=== PATIENT | male | born 1950 | race Caucasian/White ===

== ENCOUNTER 2017-05-17 08:52 | Emergency (ER) | payer MEDICARE, OTHER ==
[~2017-05-17] VITALS: Ht 180.3 cm; Wt 70.5 kg
[2017-05-17] MEDS ORDERED: AZIT-57 PO (09:38)
[2017-05-17 09:50] VITALS: BP 116/75
== END 2017-05-17 09:52 | disposition home or self-care (01) ==
LOC: ER 08:53
DX: J20.9 Acute bronchitis, unspecified (principal); I10 Essential (primary) hypertension; E11.9 Type 2 diabetes mellitus without complications
CPT/HCPCS: 99283

== ENCOUNTER 2017-07-16 14:03 | Emergency (ER) | payer MEDICARE, MEDICAID ==
[~2017-07-16] VITALS: Ht 180.3 cm; Wt 61.8 kg
[2017-07-16 14:25] VITALS: BP 126/82
[2017-07-16] MEDS ORDERED: TETanus/Pertussis (Acell)/Diphther VAC/PF (Tdap-Adult) 0.5ml syringe IM ONE (15:00)
[2017-07-16] MEDS ORDERED: BUPIVAcaine/PF 2.5 mg/ml (0.25%) 30ml vial IJ ONE (15:00)
[2017-07-16] MEDS ORDERED: CEPH-572 PO (15:35)
== END 2017-07-16 15:55 | disposition home or self-care (01) ==
LOC: ER 14:04
DX: S61.012A Laceration without foreign body of left thumb without damage to nail, initial encounter (principal); I10 Essential (primary) hypertension; E11.9 Type 2 diabetes mellitus without complications; W22.8XXA Striking against or struck by other objects, initial encounter; Y93.89 Activity, other specified; Y92.89 Other specified places as the place of occurrence of the external cause; Y99.8 Other external cause status
CPT/HCPCS: 12001; 73130; 99284; A6449; J3490; 90715

== ENCOUNTER 2021-05-23 17:58 | Emergency (ER) | payer MEDICARE, MEDICAID ==
[~2021-05-23] VITALS: Ht 180.3 cm; Wt 70.5 kg
[2021-05-23] MEDS ORDERED: BENZ-38 PO (19:02)
[2021-05-23] MEDS ORDERED: ALBU6.7H9 INH (19:02)
[2021-05-23] MEDS ORDERED: CEPH250T PO (19:02)
[2021-05-23] MEDS ORDERED: DOXY100C76 PO (19:02)
[2021-05-23 19:06] VITALS: BP 188/91
== END 2021-05-23 20:08 | disposition home or self-care (01) ==
LOC: ER 17:58
DX: J40 Bronchitis, not specified as acute or chronic (principal); Z20.822 Contact with and (suspected) exposure to COVID-19; I10 Essential (primary) hypertension; E11.9 Type 2 diabetes mellitus without complications; Z87.891 Personal history of nicotine dependence; Z79.2 Long term (current) use of antibiotics; Z79.899 Other long term (current) drug therapy
CPT/HCPCS: 36415; 71045; 99284; U0003; U0005

== ENCOUNTER 2022-03-29 22:53 | Emergency (ER) | payer BC, MEDICAID ==
[~2022-03-29] VITALS: Ht 175.3 cm; Wt 73.6 kg
[~2022-03-29 22:53] MED LIST: ALBU6.7H14 INH; CEPH-585 PO; SULF1TAB45 PO
[2022-03-29 23:06] VITALS: BP 177/75
[2022-03-30] MEDS ORDERED: CEPH-585 PO (02:05)
[2022-03-30] MEDS ORDERED: DOXY100C76 PO (02:05)
--- NOTE | 2022-03-30 02:45 | NUR ---
TREATMENT WAS PROVIDED TO THE PT PER EDMO REBEKA ORDERS: XEROFORM, GAUZE WRAPS, AND AN RUPERTO BANDAGE WAS ADMINISTED TO BOTH THE PT LEGS. PT APPEARED TO TOLERATE WELL.
== END 2022-03-30 02:46 | disposition home or self-care (01) ==
LOC: ER 22:53
DX: L02.416 Cutaneous abscess of left lower limb (principal); L02.415 Cutaneous abscess of right lower limb; E11.9 Type 2 diabetes mellitus without complications; I10 Essential (primary) hypertension; Z79.2 Long term (current) use of antibiotics; Z79.899 Other long term (current) drug therapy
CPT/HCPCS: 99284; A6223; A6446; A6449

== ENCOUNTER 2022-09-01 22:54 | Emergency (ER) | payer BC, MEDICAID ==
[~2022-09-01] VITALS: Ht 180.3 cm; Wt 70.5 kg
[2022-09-01 23:04] VITALS: BP 179/78
[2022-09-02] MEDS ORDERED: proparacaine 0.5% ophthalmic drops 15ml EACHEYE ONE (00:50)
[2022-09-02] MEDS ORDERED: erythromycin ophthalmic ointment 1gm tube LEFTEYE ONE (01:10)
[2022-09-02] MEDS ORDERED: ACET-812 PO (01:14)
[2022-09-02] MEDS ORDERED: ERYT1OIN6 EACHEYE (01:14)
[2022-09-02] MEDS ORDERED: acetaminophen 325mg tablet PO ONE (01:15)
== END 2022-09-02 02:07 | disposition home or self-care (01) ==
LOC: ER 22:54
DX: S05.02XA Injury of conjunctiva and corneal abrasion without foreign body, left eye, initial encounter (principal); I10 Essential (primary) hypertension; E11.9 Type 2 diabetes mellitus without complications; Z79.899 Other long term (current) drug therapy; X58.XXXA Exposure to other specified factors, initial encounter; Y93.89 Activity, other specified; Y92.89 Other specified places as the place of occurrence of the external cause; Y99.8 Other external cause status
CPT/HCPCS: 99283; A6410

== ENCOUNTER 2023-04-02 08:40 | Emergency (ER) | payer BC, MEDICAID ==
[~2023-04-02] VITALS: Ht 177.8 cm; Wt 76.1 kg
[~2023-04-02 08:40] MED LIST changes: -ALBU6.7H14 INH; -CEPH-585 PO; +GLIP5TAB23 PO; +HYDR25TA4 PO; +INSU100I31; +LISI20TA28 PO; +OMEP20CA16 PO; +SIMV-42 PO; -SULF1TAB45 PO
[2023-04-02 08:46] VITALS: TEMP 97.8
[2023-04-02] MEDS ORDERED: HYDROcodone/acetaminophen 10/325mg tab PO ONE (09:30)
[2023-04-02] MEDS ORDERED: furosemide 20MG tablet PO ONE (09:30)
[2023-04-02] MEDS ORDERED: vancomycin 1,750 MG in NS 350ml IV soln IV ONE (09:45)
[2023-04-02 09:58] LABS: BASOPHILS % (AUTO) 0.4 % (0-1); EOSINOPHILS # (AUTO) 0.1 X10'3 (0-0.9); HEMOGLOBIN 10.8 g/dl (14.0-17.9); LYMPHOCYTES # (AUTO) 1.1 X10'3 (1.1-4.8); LYMPHOCYTES % (AUTO) 17.1 % (21-51); MEAN CORPUSCULAR HEMOGLOBIN 28.2 PG (27.0-31.0); MEAN CORPUSCULAR HGB CONC 32.8 g/dL (33.0-36.5); MEAN CORPUSCULAR VOLUME 85.9 FL (78-98); MEAN PLATELET VOLUME 7.4 FL (7.4-10.4); MONOCYTES # (AUTO) 0.6 X10'3 (0-0.9); MONOCYTES % (AUTO) 9.6 % (2-12); NEUTROPHILS # (AUTO) 4.4 X10'3 (1.8-7.7); NEUTROPHILS % (AUTO) 70.9 % (42-75); PLATELET COUNT 234 X10'3 (140-440); RED BLOOD COUNT 3.84 X10'6 (4.70-6.10); RED CELL DISTRIBUTION WIDTH 13.7 % (11.5-14.5); WHITE BLOOD COUNT 6.2 X10'3 (4.5-11.0)
[2023-04-02 10:05] LABS: APTT 26 SECONDS (22-32)
[2023-04-02 10:08] LABS: ALANINE AMINOTRANSFERASE 21 U/L (12-78); ALBUMIN 2.8 G/DL (3.4-5.0); ALBUMIN/GLOBULIN RATIO 0.6 (1.1-1.5); ALKALINE PHOSPHATASE 93 IU/L (46-116); ANION GAP 5 (8-16); ASPARTATE AMINO TRANSFERASE 15 U/L (10-37); BILIRUBIN,TOTAL 0.3 MG/DL (0.1-1.0); BLOOD UREA NITROGEN 22 MG/DL (7-18); BUN/CREATININE RATIO 13.9 (10.0-20.0); CALCIUM 8.8 MG/DL (8.5-10.1); CHLORIDE 110 MMOL/L (99-107); CREATININE 1.58 MG/DL (0.60-1.10); GLUCOSE 134 MG/DL (70-104); POTASSIUM 4.3 MMOL/L (3.5-5.1); SODIUM 141 MMOL/L (135-145); TOTAL CARBON DIOXIDE 26.3 MMOL/L (24-32); TOTAL PROTEIN 7.2 G/DL (6.4-8.2); eCRCL 44 ML/MIN; eGFR 43 ML/MIN
[2023-04-02 10:15] LABS: C-REACTIVE PROTEIN 1.94 MG/DL (0.0-0.5); PRO BRAIN NATRIURETIC PEPTIDE 516 PG/ML (0-125)
[2023-04-02] MEDS ORDERED: POTA-207 PO (11:48)
[2023-04-02] MEDS ORDERED: HYDR50TA4 PO (11:48)
[2023-04-02] MEDS ORDERED: CEPH-585 PO (11:48)
[2023-04-02] MEDS ORDERED: docusate sod 100mg capsule PO ONE (12:25)
[2023-04-02 13:05] VITALS: BP 162/76; PULSE 79; RESP 18; O2SAT 100
[2023-04-08] MEDS ORDERED: GABA-530 PO (18:01)
[2023-04-08] MEDS ORDERED: EMPA10TA PO (18:01)
[2023-04-10] MEDS ORDERED: COR3.125T PO (13:12)
[2023-04-10] MEDS ORDERED: PANT40TA54 PO (13:14)
== END 2023-04-02 13:10 | disposition home or self-care (01) ==
LOC: ER 08:40
DX: I50.810 Right heart failure, unspecified (principal)
CPT/HCPCS: 36415; 80053; 83605; 83880; 85025; 85610; 85651; 85730; 86140; 87040; 96365; 96366; 99285; J3370; J7040; A6258

== ENCOUNTER 2023-06-09 17:39 | Emergency (ER) | payer BC, MEDICAID ==
[~2023-06-09] VITALS: Ht 180.3 cm; Wt 69.3 kg
[~2023-06-09 17:39] MED LIST changes: +COR3.125T PO; +EMPA10TA PO; +GABA-530 PO; -OMEP20CA16 PO; +PANT40TA54 PO
[2023-06-09 18:33] LABS: BASOPHILS # (AUTO) 0.1 X10'3 (0-0.2); LYMPHOCYTES # (AUTO) 1.2 X10'3 (1.1-4.8); LYMPHOCYTES % (AUTO) 24.4 % (21-51)
[2023-06-09 18:35] LABS: BASOPHILS % (AUTO) 1.2 % (0-1); EOSINOPHILS # (AUTO) 0.1 X10'3 (0-0.9); EOSINOPHILS % (AUTO) 1.1 % (0-6); HEMATOCRIT 38.4 % (42.0-52.0); HEMOGLOBIN 12.7 g/dl (14.0-17.9); MEAN CORPUSCULAR HGB CONC 33.1 g/dL (33.0-36.5); MEAN CORPUSCULAR VOLUME 81.5 FL (78-98); MEAN PLATELET VOLUME 7.8 FL (7.4-10.4); MONOCYTES # (AUTO) 0.6 X10'3 (0-0.9); MONOCYTES % (AUTO) 12.2 % (2-12); NEUTROPHILS % (AUTO) 61.1 % (42-75); PLATELET COUNT 224 X10'3 (140-440); RED BLOOD COUNT 4.71 X10'6 (4.70-6.10); RED CELL DISTRIBUTION WIDTH 14.9 % (11.5-14.5); WHITE BLOOD COUNT 4.9 X10'3 (4.5-11.0)
[2023-06-09 18:46] LABS: ALANINE AMINOTRANSFERASE 23 U/L (12-78); ALBUMIN 3.2 G/DL (3.4-5.0); ALBUMIN/GLOBULIN RATIO 0.7 (1.1-1.5); ALKALINE PHOSPHATASE 91 IU/L (46-116); ANION GAP 10 (8-16); ASPARTATE AMINO TRANSFERASE 15 U/L (10-37); BILIRUBIN,TOTAL 0.5 MG/DL (0.1-1.0); BLOOD UREA NITROGEN 36 MG/DL (7-18); BUN/CREATININE RATIO 16.6 (10.0-20.0); CALCIUM 8.6 MG/DL (8.5-10.1); CHLORIDE 99 MMOL/L (99-107); CREATININE 2.17 MG/DL (0.60-1.10); POTASSIUM 3.6 MMOL/L (3.5-5.1); SODIUM 137 MMOL/L (135-145); TOTAL CARBON DIOXIDE 28.3 MMOL/L (24-32); TOTAL PROTEIN 7.8 G/DL (6.4-8.2); eCRCL 30 ML/MIN; eGFR 30 ML/MIN
[2023-06-09 19:05] LABS: GLUCOSE 411 MG/DL (70-104)
[2023-06-09 20:09] VITALS: BP 127/69; PULSE 58; RESP 16; TEMP 97.8; O2SAT 99
[2023-06-09] MEDS: insulin regular, human 10 units/0.1 ml syringe SQ ONE (20:15)
[2023-06-09] MEDS ORDERED: NAPR-56 PO (20:24)
== END 2023-06-09 21:09 | disposition home or self-care (01) ==
LOC: ER 17:39
DX: E11.40 Type 2 diabetes mellitus with diabetic neuropathy, unspecified (principal); E11.65 Type 2 diabetes mellitus with hyperglycemia; E11.22 Type 2 diabetes mellitus with diabetic chronic kidney disease; N18.9 Chronic kidney disease, unspecified; Z79.899 Other long term (current) drug therapy
CPT/HCPCS: 36415; 80053; 82948; 85025; 86140; 99283; J1815